=== PATIENT | male | born 1940 | race Caucasian/White ===

== ENCOUNTER 2017-11-29 09:55 | Emergency (ER) | payer MEDICAID ==
[~2017-11-29] VITALS: Ht 172.7 cm; Wt 78.9 kg
[2017-11-29 10:00] VITALS: Ht 172.7 cm; Wt 78.9 kg
[2017-11-29 11:24] LABS: BASOPHIL % 0.3 % (0-2); PLATELET COUNT 242 x10^3mcL (130-400)
[2017-11-29 11:26] LABS: RED CELL DISTRIBUTION WIDTH 14.6 % (11.5-14.5)
[2017-11-29 12:00] LABS: CALCIUM 9.9 mg/dL (8.5-10.1); CARBON DIOXIDE 25.7 mmol/L (21-32); CHLORIDE SERUM 96 mmol/L (98-107); CREATININE SERUM 1.2 mg/dL (0.7-1.3); GLUCOSE SERUM 218 mg/dL (74-106); POTASSIUM SERUM 4.4 mmol/L (3.5-5.1); SODIUM SERUM 134 mmol/L (136-145)
[2017-11-29 12:03] LABS: ALBUMIN 3.8 g/dL (3.4-5.0); ALKALINE PHOSPHATASE 105 U/L (46-116); ALT/SGPT 28 U/L (16-63); AST/SGOT 17 U/L (15-37); BILIRUBIN TOTAL 0.7 mg/dL (0.20-1.00); CHOLESTEROL 175 mg/dL (<200); CHOLESTEROL/HDL RATIO 4.7; HDL CHOLESTEROL 37 mg/dL (40-60); LIPASE 47 IU/L (73-393); TRIGLYCERIDES 115 mg/dL (<150)
[2017-11-29 12:04] LABS: TOTAL PROTEIN, SERUM 8.4 g/dL (6.4-8.2)
[2017-11-29 12:11] LABS: FREE T4 1.41 ng/dL (0.76-1.46); FREE THYROXINE INDEX 2.8 ug/dL (1.4-4.5); T4(THYROXINE) 8.5 ug/dL (4.7-13.3)
[2017-11-29 12:13] LABS: UA SPECIFIC GRAVITY >=1.030 (1.005-1.035); microscopic required? YES; urine erythrocyte NEGATIVE (NEGATIVE)
[2017-11-29 15:00] VITALS: BP 167/92
[2017-11-30 09:22] LABS: T3 TOTAL 0.96 ng/mL
== END 2017-11-29 15:15 | disposition home or self-care (01) ==
LOC: ED 09:55
PROVIDERS: Specialist
DX: K59.00 Constipation, unspecified (principal); G89.29 Other chronic pain; R07.89 Other chest pain; E11.9 Type 2 diabetes mellitus without complications; Z90.49 Acquired absence of other specified parts of digestive tract; Z88.0 Allergy status to penicillin
CPT/HCPCS: 82962; 83880; 84439; J1885; J2405; J3010; J7030; Q0092